=== PATIENT | female | born 1975 | race African-American/Black ===

== ENCOUNTER 2021-02-17 13:41 | Emergency (ER) | payer MEDICARE, SELFPAY ==
[2021-02-17] MEDS ORDERED: Sodium Chloride 0.9% 1,000 ML ONE (14:21)
[2021-02-17 14:42] LABS: BHCG - Serum Negative (NEGATIVE); Pregs Control Background? CLEAR/WHITE (CLR/WHITE); Pregs Control Bar Appear? YES (CONTROL BAR)
[2021-02-17 14:52] LABS: Bilirubin Small (Negative); Blood, Urine Negative (Negative); Clarity Cloudy (Clear); Glucose, Urine (Dipstick) Negative (Negative); Ketone, Urine Negative (Negative); Leukocyte Negative (Negative); Nitrite Negative (Negative); Protein, Urine (Dipstick) > or equal to 300 mg/dL (Neg-Trace); Specific Gravity, Urine 1.025 (1.005-1.030)
[2021-02-17 15:02] LABS: Bacteria/HPF 4+ HPF (None Seen); RBC/HPF 0-3 HPF (0-3)
[2021-02-17 15:07] LABS: ALT (SGPT) 69 U/L (8-55); AST (SGOT) 58 U/L (5-34); Albumin 3.1 g/dL (3.5-5.0); Alkaline Phosphatase 67 U/L (40-110); Anion Gap 16 mmol/L (10-20); Anisocytosis SLIGHT = 6-15 cells (100X) (0-5/hpf); BUN (Urea Nitrogen) 13 mg/dL (7.0-18.7); Band 5 % (5-11); Bilirubin, Total 0.3 mg/dL (0.2-1.2); CRP (Inflammatory) 19.36 mg/dL (= or < 0.5); Calc. Creatinine Clearance 0 mL/min (70-130); Calcium 8.3 mg/dL (7.8-10.44); Carbon Dioxide 26 mmol/L (22-29); Chloride 99 mmol/L (98-107); Eosinophils 1 % (0-10); Globulin 4.5 g/dL (2.4-3.5); Glucose 129 mg/dL (70-105); Hemoglobin 13.9 g/dL (12.0-16.0); Lymphocytes 16 % (21-51); MDiff Complete? YES; Mean Corpuscular HGB CONC 29.7 g/dL (32.0-36.0); Mean Corpuscular Hemoglobin 26.4 pg (27.0-31.0); Mean Corpuscular Volume 88.9 fL (78.0-98.0); Mean Platelet Volume 7.1 fL (7.4-10.4); Monocytes 10 % (0-10); Neutrophil 68 % (42-75); Platelet Count 341 thou/uL (130-400); Platelet Morphology Comment Appears Adequate; Potassium 3.9 mmol/L (3.5-5.1); Protein, Total 7.6 g/dL (6.0-8.3); RBC Distribution Width 12.9 % (11.5-14.5); Red Blood Cell (RBC) Count 5.29 mill/uL (4.20-5.40); Sodium 137 mmol/L (136-145)
[2021-02-17] MEDS ORDERED: cefTRIAXone\\ROCEPHIN 2 GM VIAL ONE (15:14)
[2021-02-17] MEDS ORDERED: Sodium Chloride 0.9% 100 ML ONE (15:14)
[2021-02-17] MEDS ORDERED: Dexamethasone 10 MG/ML VIAL ONE (15:14)
[2021-02-17 15:18] LABS: SARS-CoV-2 NAA Rapid Test DETECTED (NotDetected)
[2021-02-17] MEDS ORDERED: Sodium Chloride 0.9% 250 ML 250 ML ONE (15:39)
[2021-02-17] MEDS ORDERED: Azithromycin 500 MG VIAL ONE (15:39)
== END 2021-02-17 19:20 | disposition home or self-care (01) ==
LOC: MADERS 13:41
DX: U07.1 COVID-19 (principal); J12.82 Pneumonia due to coronavirus disease 2019
CPT/HCPCS: 0240U; 36415; 71045; 80053; 81003; 81015; 82550; 83605; 83880; 84484; 84703; 85025; 86140; 87040; 94760; 96365; 96367; 96375; J0456; J0696; J1100; J3490; J7050